=== PATIENT | female | born 1945 | race Two or more races ===

== ENCOUNTER → 2016-08-19 | Day surgery (SDC) | payer BC ==
[2016-08-04 14:24] VITALS: Ht 156.2 cm; Wt 51.4 kg
[~2016-08-19] VITALS: Ht 156.2 cm; Wt 51.4 kg
[~2016-08-19] MED LIST: 500ML BSS 0.3ML EPI 1:1000PF IRRIG ONE; ACETAMINOPHEN 325 MG TAB PO PRN; AMVISC PLUS 0.8ML SYRINGE INT OCU ONE; ASPCH81X PO; ATROPINE SULFATE 0.1 MG/ML 5ML SYR IV PRN; AcetaZOLAMIDE 250 MG TAB PO SCH; BETAXOLOL HCL 0.25% OP SUSP PER DROP CHARGE OPL SCH; BRIMONIDINE TART 0.2% OP SOLN PER DROP CHARGE ONE; BSS FLUSH ONE; ENDOCOAT 0.85ML SYRINGE INT OCU ONE; EpINEphrine INJ 1MG/ML AMP 1 MG/ML AMP ONE; GLIP2.5T11 PO; LACTATED RINGER'S 1000ML 500 ML IV SCH; LIDOCAINE 4% OP SOLN DROP CHARGE ONE; LIDOCAINE 4% OP SOLN DROP CHARGE OPL SCH; LIDOCAINE HCL 1% MPF 2 ML VIAL ONE; METF-384 PO; MIDAZOLAM HCL 1 MG/ML 2ML VIAL ONE; MIX: 4ML BSS 1ML EPI 1:1000 PF INSTIL ONE; MOXIFLOXACIN OPH SOLN PER DROP CHARGE ONE; MULT-506 PO; OCUCOAT 1 ML SOLN IO ONE; OYST500T47 PO; POVIDONE-IODINE OP SOLN 30 ML BTL ONE; PROPARACAINE 0.5% OP SOLN PER DROP CHARGE OPL SCH; SIMV10TA2 PO; SITA100T3 PO; TOBRAMYCIN/DEXAMETHASONE OPH OINT PER APPLN CHARGE ONE
--- NOTE | 2016-08-19 08:10 | History & Physical Bridge - [place] ---
H&P Re-Evaluation Bridge Note: I have examined the patient, reviewed the History & Physical and in the interval since the performance of the History & Physical I have noted the following changes of clinical significance: No changes noted
[2016-08-19] MEDS: PHENYLEPHRINE HCL 2.5% OP SOLN PER DROP CHARGE OPL SCH ×2 (09:12→09:17)
[2016-08-19] MEDS: TROPICAMIDE 1% OP SOLN PER DROP CHARGE OPL SCH ×2 (09:13→09:18)
[2016-08-19] MEDS: CYCLOPENTOLATE HCL 1% OP SOLN PER DROP CHARGE OPL SCH ×2 (09:14→09:19)
[2016-08-19] MEDS: MOXIFLOXACIN OPH SOLN PER DROP CHARGE OPL SCH ×2 (09:15→09:25)
--- NOTE | 2016-08-19 10:00 | Discharge Instructions-SurgCtr ---
Discharge Instructions Date of Service Aug 19, 2016. Visit Reason for Visit: Cataract Left Eye Discharge Discharge Diagnosis / Problem: lens implant left eye Discharge Goals Goal(s): Improve function Medications Stopped Medications Name(s): Metfomin, glipizide held for 48 hrs. Activity Recommendations Activity Limitations: resume your previous activity Lifting Limitations: no more than 10 pounds Exercise/Sports Limitations: gradually increase as tolerated May Resume Sexual Activity: when tolerated Shower/Bathe: tomorrow Driving or Machine Use: resume 1 day after discharge Anesthesia . Post Anesthesia Instructions: If you have had General Anesthesia or IV Sedation: * Do not drive today. * Resume driving when surgeon permits. * Do not make important decisions or sign legal documents today. * Call surgeon for: 1. Temperature elevations greater than 101 degrees F. 2. Uncontrollable pain. 3. Excessive bleeding. 4. Persistent nausea and vomiting. 5. Medication intolerance (nausea, vomiting or rash). * For nausea and vomiting use only clear liquids such as: tea, soda, bouillon until nausea subsides, then gradually increase diet as tolerated. * If you have any concerns or questions, call your surgeon's office. If physician is unavailable and it is an emergency, call 911 or go to the nearest emergency room. . Instructions / Follow-Up Instructions / Follow-Up ACTIVITY RECOMMENDATIONS: * Light activities. * Mild irritation and blurred vision are common for the first few days. * You may walk outside, read, watch television. * Redness around the white part of the eye is common. MEDICATIONS: Resume previous medications unless instructed otherwise by your surgeon. * Take white Diamox (Acetazolamide) tablet at 1 pm today. Start all eye drops at 1 pm today: * Eye drops (today and tomorrow): Prednisone - one drop in operative eye every 3 hours while awake Ofloxacin - one drop in operative eye every 3 hours while awake SPECIAL CARE INSTRUCTIONS: * Tape plastic shield over eye to sleep at night. Call your doctor at with any concerns or problems. FOLLOW UP VISIT: Follow-up with Dr Barrera at [place] office as scheduled. Diet Recommendations Home Diet: no limitations Procedures Procedures Performed: cataract extraction with lens implant Pending Studies Studies pending at discharge: no Medical Emergencies . Who to Call and When: Medical Emergencies: If at any time you feel your situation is an emergency, please call 911 immediately. . Non-Emergent Contact Non-Emergency issues call your: Demolition Expert Call Non-Emergent contact if: your pain is not controlled [phone] . . "Provider Documentation" section prepared by Shant Barrera. .
--- NOTE | 2016-08-19 10:02 | [facility] Operative Report ---
Operative Report Date of Service Aug 19, 2016. Operative Report 1. PREOPERATIVE DIAGNOSIS: Senile nuclear cataract, left eye. 2. POSTOPERATIVE DIAGNOSIS: Senile nuclear cataract, left eye. 3. PROCEDURE: Phacoemulsification of left cataract with posterior chamber lens implant, type Bausch [employer] Lomb, model Hoya [id number], power +22.0 diopters. ANESTHESIA: Local standby. SURGEON: Dr. Barrera. COMPLICATIONS: None. OPERATING TIME: 10 minutes. 4. OPERATION AND FINDINGS: DESCRIPTION OF PROCEDURE: The left pupil was dilated. The anesthetic was administered using a topical technique. The left eye was prepped and draped. A speculum was placed. A clear corneal incision was formed. The chamber was filled with Amvisc Plus and Endocoat. Epinephrine solution was used. A paracentesis was placed. A capsulorrhexis was performed. The nucleus was hydrodissected. The lens was removed with phacoemulsification. Time was 5.98 seconds. The aspiration unit was used to remove the cortex. The capsule was filled with Amvisc Plus. The lens implant was folded and placed into the capsule. The haptics were placed horizontally. The incision was hydrated. The Amvisc was aspirated. The wound was secure. The chamber was deep. The pupil was round. TobraDex ointment and Vigamox solution were placed. The speculum was removed. The patient was returned to the Recovery Room in stable condition. I attest to the content of the Intraoperative Record and any orders documented therein. Any exceptions are noted below. The scribe's documentation has been prepared in my presence, under my direction and personally reviewed by me in its entirety. I confirm that the note above accurately reflects all work, treatment, procedures, and medical decision making performed by me. I personally scribed for Shant Barrera M.D. ([email or web address]) on 08/19/16 at 10:02. Electronically submitted by Ana Hurst ([email or web address]).
[2016-08-19 10:05] VITALS: TEMP 36.5
--- NOTE | 2016-08-19 10:27 | Anesthesia Progress Nt - [facility] ---
Anesthesia Post Op Note Date & Time Aug 19, 2016 at 10:27 Vital Signs Pain Intensity: 0 Vital Signs Past 12 Hours Date Time Temp Pulse Resp B/P Pulse Ox O2 Delivery O2 Flow Rate FiO2 08/19/16 10:05 36.5 65 16 101/60 96 Room Air 08/19/16 08:59 36.3 61 16 140/75 99 Room Air Notes Mental Status: alert / awake / arousable, participated in evaluation Pt Amnestic to Procedure: No (recall as expected) Nausea / Vomiting: adequately controlled Pain: adequately controlled Airway Patency, RR, SpO2: stable & adequate BP & HR: stable & adequate Hydration State: stable & adequate Anesthetic Complications: no major complications apparent Pt doing well.
[2016-08-19 10:28] VITALS: BP 114/64; PULSE 67; O2SAT 98
== END | disposition home or self-care (01) ==
LOC: X.SURG 08:46
PROVIDERS: ATTEND Specialist
DX: H25.12 Age-related nuclear cataract, left eye (principal); E11.36 Type 2 diabetes mellitus with diabetic cataract; Z68.21 Body mass index [BMI] 21.0-21.9, adult; Z90.89 Acquired absence of other organs

== ENCOUNTER → 2016-09-30 | Day surgery (SDC) | payer BC ==
[2016-09-23 15:49] VITALS: Ht 154.9 cm; Wt 51.4 kg
[~2016-09-30] VITALS: Ht 154.9 cm; Wt 51.4 kg
[~2016-09-30] MED LIST changes: -BETAXOLOL HCL 0.25% OP SUSP PER DROP CHARGE OPL SCH; +BETAXOLOL HCL 0.25% OP SUSP PER DROP CHARGE OPR SCH; -BSS FLUSH ONE; -LIDOCAINE 4% OP SOLN DROP CHARGE OPL SCH; +LIDOCAINE 4% OP SOLN DROP CHARGE OPR SCH; -PROPARACAINE 0.5% OP SOLN PER DROP CHARGE OPL SCH; +PROPARACAINE 0.5% OP SOLN PER DROP CHARGE OPR SCH
[2016-09-30] MEDS: PHENYLEPHRINE HCL 2.5% OP SOLN PER DROP CHARGE OPR SCH ×2 (07:25→07:31)
[2016-09-30] MEDS: TROPICAMIDE 1% OP SOLN PER DROP CHARGE OPR SCH ×2 (07:26→07:31)
[2016-09-30] MEDS: CYCLOPENTOLATE HCL 1% OP SOLN PER DROP CHARGE OPR SCH ×2 (07:27→07:31)
[2016-09-30] MEDS: MOXIFLOXACIN OPH SOLN PER DROP CHARGE OPR SCH ×2 (07:28→07:37)
--- NOTE | 2016-09-30 08:32 | Discharge Instructions-SurgCtr ---
Discharge Instructions Date of Service Sep 30, 2016. Visit Reason for Visit: Cataract Right Eye Discharge Discharge Diagnosis / Problem: lens implant right eye Discharge Goals Goal(s): Improve function Activity Recommendations Activity Limitations: resume your previous activity Lifting Limitations: no more than 10 pounds Exercise/Sports Limitations: gradually increase as tolerated May Resume Sexual Activity: when tolerated Shower/Bathe: tomorrow Driving or Machine Use: resume 1 day after discharge Anesthesia . Post Anesthesia Instructions: If you have had General Anesthesia or IV Sedation: * Do not drive today. * Resume driving when surgeon permits. * Do not make important decisions or sign legal documents today. * Call surgeon for: 1. Temperature elevations greater than 101 degrees F. 2. Uncontrollable pain. 3. Excessive bleeding. 4. Persistent nausea and vomiting. 5. Medication intolerance (nausea, vomiting or rash). * For nausea and vomiting use only clear liquids such as: tea, soda, bouillon until nausea subsides, then gradually increase diet as tolerated. * If you have any concerns or questions, call your surgeon's office. If physician is unavailable and it is an emergency, call 911 or go to the nearest emergency room. . Instructions / Follow-Up Instructions / Follow-Up ACTIVITY RECOMMENDATIONS: * Light activities. * Mild irritation and blurred vision are common for the first few days. * You may walk outside, read, watch television. * Redness around the white part of the eye is common. MEDICATIONS: Resume previous medications unless instructed otherwise by your surgeon. * Take white Diamox (Acetazolamide) tablet at 1 pm today. Start all eye drops at 1 pm today: * Eye drops (today and tomorrow): Prednisone - one drop in operative eye every 3 hours while awake Ofloxacin - one drop in operative eye every 3 hours while awake SPECIAL CARE INSTRUCTIONS: * Tape plastic shield over eye to sleep at night. Call your doctor at with any concerns or problems. FOLLOW UP VISIT: Follow-up with Dr Barrera at [place] office as scheduled. Diet Recommendations Home Diet: no limitations Procedures Procedures Performed: cataract extraction with lens implant Pending Studies Studies pending at discharge: no Medical Emergencies . Who to Call and When: Medical Emergencies: If at any time you feel your situation is an emergency, please call 911 immediately. . Non-Emergent Contact Non-Emergency issues call your: Solder Leveler [employer] Call Non-Emergent contact if: your pain is not controlled [phone] . . "Provider Documentation" section prepared by Shant Barrera. .
--- NOTE | 2016-09-30 08:34 | [facility] Operative Report ---
Operative Report Date of Service Sep 30, 2016. Operative Report 1. PREOPERATIVE DIAGNOSIS: Senile nuclear cataract, Right eye. 2. POSTOPERATIVE DIAGNOSIS: Senile nuclear cataract, right eye. 3. PROCEDURE: Phacoemulsification of right cataract with posterior chamber lens implant, type Bausch & Lomb, model Hoya [id number], power +21.5 diopters. ANESTHESIA: Local standby. SURGEON: Dr. Barrera. COMPLICATIONS: None. OPERATING TIME: 10 minutes. 4. OPERATION AND FINDINGS: DESCRIPTION OF PROCEDURE: The right pupil was dilated. The anesthetic was administered using a topical technique. The right eye was prepped and draped. A speculum was placed. A clear corneal incision was formed. The chamber was filled with Amvisc Plus and Endocoat. Epinephrine solution was used. A paracentesis was placed. A capsulorrhexis was performed. The nucleus was hydrodissected. A lens was removed with phacoemulsification. Time was 8.12 seconds. The aspiration unit was used to remove the cortex. The capsule was filled with Amvisc Plus. The lens implant was folded and placed into the capsule. The incision was hydrated. The Amvisc was aspirated. The wound was secure. The chamber was deep. The pupil was round. Brimonidine, TobraDex ointment and Vigamox solution were placed. The speculum was removed. The patient was returned to the Recovery Room in stable condition. I attest to the content of the Intraoperative Record and any orders documented therein. Any exceptions are noted below. I personally scribed for Shant Barrera M.D. ([email or web address]) on 09/30/16 at 08:34. Electronically submitted by Ana Hurst ([email or web address]).
[2016-09-30 08:35] VITALS: TEMP 36.4
[2016-09-30 08:59] VITALS: BP 128/80; PULSE 67; O2SAT 100
--- NOTE | 2016-09-30 09:28 | Anesthesia Progress Nt - [facility] ---
Anesthesia Post Op Note Date & Time Sep 30, 2016 at 09:27 Vital Signs Pain Intensity: 0 Vital Signs Past 12 Hours Date Time Temp Pulse Resp B/P (MAP) Pulse Ox O2 Delivery O2 Flow Rate FiO2 09/30/16 08:59 67 16 128/80 (96) 100 Room Air 09/30/16 08:35 36.4 56 14 110/74 (86) 98 Room Air 09/30/16 07:11 36.8 66 16 131/79 (96) 99 Room Air Notes Mental Status: alert / awake / arousable, participated in evaluation Pt Amnestic to Procedure: Yes Nausea / Vomiting: adequately controlled Pain: adequately controlled Airway Patency, RR, SpO2: stable & adequate BP & HR: stable & adequate Hydration State: stable & adequate Anesthetic Complications: no major complications apparent
== END | disposition home or self-care (01) ==
LOC: X.SURG 06:43
PROVIDERS: ATTEND Specialist
DX: H25.11 Age-related nuclear cataract, right eye (principal); E11.36 Type 2 diabetes mellitus with diabetic cataract; Z88.5 Allergy status to narcotic agent; Z68.21 Body mass index [BMI] 21.0-21.9, adult; Z98.42 Cataract extraction status, left eye; Z90.89 Acquired absence of other organs; Z91.040 Latex allergy status

== ENCOUNTER → 2017-05-05 | Outpatient (CLI) | payer BC ==
[~2017-05-05] MED LIST changes: -500ML BSS 0.3ML EPI 1:1000PF IRRIG ONE; -ACETAMINOPHEN 325 MG TAB PO PRN; -AMVISC PLUS 0.8ML SYRINGE INT OCU ONE; -ATROPINE SULFATE 0.1 MG/ML 5ML SYR IV PRN; -AcetaZOLAMIDE 250 MG TAB PO SCH; -BETAXOLOL HCL 0.25% OP SUSP PER DROP CHARGE OPR SCH; -BRIMONIDINE TART 0.2% OP SOLN PER DROP CHARGE ONE; -ENDOCOAT 0.85ML SYRINGE INT OCU ONE; -EpINEphrine INJ 1MG/ML AMP 1 MG/ML AMP ONE; -LACTATED RINGER'S 1000ML 500 ML IV SCH; -LIDOCAINE 4% OP SOLN DROP CHARGE ONE; -LIDOCAINE 4% OP SOLN DROP CHARGE OPR SCH; -LIDOCAINE HCL 1% MPF 2 ML VIAL ONE; -MIDAZOLAM HCL 1 MG/ML 2ML VIAL ONE; -MIX: 4ML BSS 1ML EPI 1:1000 PF INSTIL ONE; -MOXIFLOXACIN OPH SOLN PER DROP CHARGE ONE; -OCUCOAT 1 ML SOLN IO ONE; -POVIDONE-IODINE OP SOLN 30 ML BTL ONE; -PROPARACAINE 0.5% OP SOLN PER DROP CHARGE OPR SCH; -TOBRAMYCIN/DEXAMETHASONE OPH OINT PER APPLN CHARGE ONE
== END | disposition home or self-care (01) ==
LOC: C.PAPS 15:50
PROVIDERS: ATTEND Obstetrics & Gynecology
DX: Z12.4 Encounter for screening for malignant neoplasm of cervix (principal)

== ENCOUNTER → 2017-07-07 | Outpatient (CLI) | payer BC | END | disposition home or self-care (01) | LOC: C.PATHSPEC 17:44 | PROVIDERS: ATTEND Obstetrics & Gynecology | DX: L82.0 Inflamed seborrheic keratosis (principal); N90.89 Other specified noninflammatory disorders of vulva and perineum ==

== ENCOUNTER 2024-10-09 13:28 | Observation (INO) ==
--- NOTE | 2024-10-09 14:01 | Emergency Department Note ---
ED DC CONDITION Conditon at Discharge Condition at Discharge: Good Impression & Plan Acute hyponatremia Admission ED Provider Note HPI: History obtained from patient. The patient is a 79-year-old female with history of type 2 diabetes, hyperlipidemia, presents the emergency department with a chief complaint of mid abdominal pain and diarrhea that has been ongoing for about the past 4 days. Patient denies any vomiting, patient denies any chest pain or shortness of breath. Patient states that she has had a slight cough and she does have a slight headache. On arrival here to the ED the patient is hemodynamically stable, she is afebrile, she otherwise appears to be in no acute distress. ROS: - Per HPI Differential Diagnosis: Sepsis, UTI, pneumonia, viral gastroenteritis, acute appendicitis, acute cholecystitis, acute colitis, diverticulitis flare, acute pancreatitis, amongst other potential pathologies. *Outpatient medications and allergy history reviewed. PE: General: Alert HEENT: Normocephalic, trachea midline Eyes: Extraocular eye movement is intact, no scleral erythema Pulmonary: Clear to auscultation bilaterally, no wheezing Cardio: Regular rate and rhythm GI: Abdomen is soft to palpation, mild tenderness over the mid abdomen without any guarding or rigidity : No suprapubic tenderness MSK: No evidence of trauma or malformation of the extremities, no edema Skin: No evidence of rash Neuro: Alert, no focal deficits Psychiatric: Cooperative INDEPENDENT INTERPRETATIONS: monitor and storage bin tender: (As interpreted by myself): - An order was placed for continuous cardiac monitoring - Patient was noted to be in sinus rhythm with a rate of 80 EKG: (As interpreted by myself): Rate: 78 Rhythm: Normal sinus rhythm Intervals: Within normal limits ST changes: No ST elevation Time: 1418 Chest x-ray: (As interpreted by myself): Left lower lobe pneumonia Interventions provided in ED: - IV fluid bolus, IV cefepime, IV azithromycin Medical Decision Making: IV was established and lab work obtained, patient was placed on monitor and storage bin tender. Lab work shows a mild leukocytosis at 13.64, hemoglobin is stable at 11.2, platelet count is normal, CMP shows a new hyponatremia at 124, creatinine is normal, BUN is normal, there is no transaminitis, lipase is normal, bilirubin is normal, troponin is negative x 1. EKG per my interpretation shows normal sinus rhythm with a rate of 78, no acute ischemic changes are noted. Patient denies any chest pain. Low suspicion for ACS. Urinalysis was obtained and shows trace ketones, 1+ blood, there is no pyuria and it is both leukocyte esterase and urine nitrate negative. Low suspicion for UTI. CT imaging of the abdomen pelvis was obtained with IV contrast and no acute findings are noted per the interpreting radiologist. Chest x-ray is suggestive of a possible early left lower lung pneumonia. On my reassessment the patient is resting comfortably in bed, she remains hemodynamically stable. Stool PCR testing is negative, C. difficile testing is negative. Given finding of possible early pneumonia in addition to new hyponatremia, I feel the patient should be admitted for further workup. Patient was in agreement, case was discussed with the on-call admitting service for [facility], the patient was placed for admission in stable condition to the service of Dr. Elder. Consultants/Discussions held with other healthcare providers: - Hospitalist, Dr. Elder Disposition discussion held by myself with: - Patient, patient's at the bedside, patient's son over the phone Diagnosis: 1. Left lower lobe pneumonia, acute 2. Diarrhea, acute, nonspecific 3. Hyponatremia, acute 4. Leukocytosis, acute Disposition: Admission Son Yepez DO Emergency Medicine Past Med/Surg History Problem List (Updated 10/09/24 @ 16:31 by ANNE-MARIE Schilling) Iron deficiency anemia HLD (hyperlipidemia) DM2 (diabetes mellitus, type 2) Acute hyponatremia (Acute) Lichen sclerosus et atrophicus Surgical History (Updated 06/24/21 @ 09:26 by Radha Russell) S/P total abdominal hysterectomy and bilateral salpingo-oophorectomy History of tonsillectomy and adenoidectomy History of ear surgery Family History (Updated 06/24/21 @ 09:26 by Radha Russell) Denies family history of Ovarian cancer Breast cancer Colorectal cancer Social History (Updated 06/24/21 @ 09:25 by Radha Russell) Smoking Status: Never smoker Do You Dip or Chew Tobacco: No; Preferred Language: Luxembourgish Feels Safe at Home: Yes Allergies Allergies Allergy/AdvReac Type Severity Reaction Status Date / Time beet Allergy Severe Gastrointestinal Unverified 10/09/24 16:15 Upset latex Allergy Unknown RASH Verified 10/09/24 16:15 codeine AdvReac Unknown coughing Verified 10/09/24 16:15 Home Meds Home Medications Medication Instructions Recorded Confirmed multivitamin (Daily Multi-Vitamin 1 tab PO DAILY 06/24/21 10/09/24 tablet) simvastatin 10 mg tablet 10 mg PO DAILY 06/24/21 10/09/24 sitagliptin phosphate 100 mg 100 mg PO DAILY 06/24/21 10/09/24 tablet (Januvia) calcium carbonate (Calcium 600) 600 mg PO DAILY 10/09/24 10/09/24 cholecalciferol (vitamin D3) 25 25 mcg PO DAILY 10/09/24 10/09/24 mcg (1,000 unit) tablet (Vitamin D3) cyanocobalamin (vitamin B-12) 1,000 mcg PO DAILY 10/09/24 10/09/24 1,000 mcg tablet ferrous sulfate 325 mg (65 mg 325 mg PO DAILY 10/09/24 10/09/24 iron) tablet,delayed release glipizide 2.5 mg tablet, extended 2.5 mg PO DAILY 10/09/24 10/09/24 release 24 hr metformin 500 mg tablet,extended 1,000 mg PO BID 10/09/24 10/09/24 release 24 hr Results & Data (ED) Vital Signs Vital Signs - 24 hr 10/09/24 13:42 10/09/24 14:11 10/09/24 15:04 Temperature 36.6 C Temperature Source Temporal Artery Scan Pulse Rate 84 80 79 Pulse Rate from SpO2 Sensor Respiratory Rate 22 20 Respiratory Effort / Characteristics Non-Labored Respiratory Depth Normal Blood Pressure 118/68 129/80 Blood Pressure Mean 84 90 Pulse Oximetry 96 99 Oxygen Delivery Method Room Air Room Air Sepsis Recent Fever Within 48 Hours No Sepsis New/Unexplained Change in Mental Status No Sepsis Action Taken by Nursing No Action Required 10/09/24 16:00 10/09/24 16:00 Temperature Temperature Source Pulse Rate 75 Pulse Rate from SpO2 Sensor 75 Respiratory Rate 21 Respiratory Effort / Characteristics Respiratory Depth Blood Pressure 122/69 Blood Pressure Mean 86 Pulse Oximetry 99 97 Oxygen Delivery Method Room Air Room Air Sepsis Recent Fever Within 48 Hours Sepsis New/Unexplained Change in Mental Status Sepsis Action Taken by Nursing Laboratory Data 10/09/24 14:05 10/09/24 14:05 Lab Results 10/09/24 10/09/24 Range/Units 14:05 15:03 WBC 13.64 H (4.8-10.8) K/ul RBC 4.01 L (4.20-5.40) M/uL Hgb 11.2 L (12.0-16.0) g/dl Hct 33.3 L (37.0-47.0) % MCV 83.0 (80.0-100.0) fL MCH 27.9 (25.0-34.0) pg MCHC 33.6 (32.0-36.0) g/dL RDW Std Deviation 40.1 (36.4-46.3) fL RDW Coeff of Elpidio 13.2 (11.5-14.5) % Plt Count 328 (130-400) K/uL MPV 8.4 L (9.4-12.4) fL Immature Gran % (Auto) 0.4 % Neut % (Auto) 74.6 % Lymph % (Auto) 13.3 % Cannon % (Auto) 10.5 % Eos % (Auto) 0.9 % Baso % (Auto) 0.3 % Neut # (Auto) 10.17 H (1.40-6.50) K/uL Lymph # (Auto) 1.82 (1.20-3.40) K/uL Cannon # (Auto) 1.43 H (0.11-0.59) K/uL Eos # (Auto) 0.12 (0.00-0.50) K/uL Baso # (Auto) 0.04 (0.00-0.20) K/uL Immature Gran # (Auto) 0.06 (0.01-0.20) K/uL PT 11.5 (9.0-12.0) Seconds INR 1.1 (0.9-1.1) Sodium 124 L (136-145) mmol/L Potassium 3.9 (3.5-5.1) mmol/L Chloride 92 L (98-107) mmol/L Carbon Dioxide 24 (21-32) mmol/L Anion Gap 8 (3-11) BUN 12 (6-23) mg/dl Creatinine 0.81 (0.6-1.2) mg/dl Est Cr Clr Drug Dosing 43.6 ml/min eGFR 73.80 BUN/Creatinine Ratio 14.8 (10-20) Glucose 110 H (70-99(Fasting)) mg/dl Osmolality 259 L (280-300) mOsm/kg Calcium 9.5 (8.6-10.3) mg/dl Total Bilirubin 0.6 (0.2-1.0) mg/dl AST 32 (13-39) U/L ALT 22 (7-52) U/L Alkaline Phosphatase 68 (34-104) U/L Troponin I High Sens 6.2 (0-14) pg/ml Total Protein 7.7 (6.0-8.3) gm/dl Albumin 4.2 (3.4-5.0) gm/dl Globulin 3.5 (2.5-4.0) gm/dl Albumin/Globulin Ratio 1.2 (0.9-2) Lipase 55 (11-82) U/L Urine Color Yellow Urine Appearance Clear (Clear) Urine pH 5.5 (4.5-7.5) Ur Specific [place] 1.015 (1.000-1.030) Urine Protein 1+ H (Negative) Urine Glucose (UA) Negative (Negative) Urine Ketones Trace H (Negative) Urine Blood 1+ H (Negative) Urine Nitrite Negative (Negative) Urine Bilirubin Negative (Negative) Urine Urobilinogen Negative (Negative) Ur Leukocyte Esterase Negative (Negative) Urine WBC (Auto) 0-5 (0-5) /hpf Urine RBC (Auto) 0-2 (0-2) /hpf U Hyaline Cast (Auto) 11-20 H (0-2) /lpf U Epithel Cells (Auto) 3-5 H (0-2) /hpf Urine Bacteria (Auto) None Seen (None Seen) Hyaline Casts Present A (None Presnt) /lpf Urine Comment Stl C. cayetanensis PCR Not Detected (NotDetected) Stool Rotavirus A PCR Not Detected (NotDetected) Stl Adenov F 40/41 PCR Not Detected (NotDetected) Stool Astrovirus (PCR) Not Detected (NotDetected) Stool Campylobacter PCR Not Detected (NotDetected) Stl C. diff Tox B Gene Negative Cdiff Gene (Neg) Stl C. diff [id number] NEGATIVE Stool Cryptosporidium PCR Not Detected (NotDetected) Stl E.coli Shiga Tox PCR Not Detected (NotDetected) Stl Enterotoxigenic E PCR Not Detected (NotDetected) Stool EPEC (PCR) Not Detected (NotDetected) Stool EAEC (PCR) Not Detected (NotDetected) Stl E. histolytica PCR Not Detected (NotDetected) Stool Giardia Lamblia PCR Not Detected (NotDetected) Stool Salmonella PCR Not Detected (NotDetected) Stool Sapovirus (PCR) Not Detected (NotDetected) Stl P. shigelloides PCR Not Detected (NotDetected) Stl Shigella/EIEC PCR Not Detected (NotDetected) St Y.enterocolitica PCR Not Detected (NotDetected) Stool Vibrio (PCR) Not Detected (NotDetected) Stl Vibrio cholerae PCR Not Detected (NotDetected) Stl Norovirus GI/GII PCR Not Detected (NotDetected) Adenovirus (PCR) Not Detected (NotDetected) B. pertussis DNA (PCR) Not Detected (NotDetected) B.parapertussis DNA PCR Not Detected (NotDetected) C. pneumoniae DNA (PCR) Not Detected (NotDetected) Coronavirus OC43 (PCR) Not Detected (NotDetected) Coronavirus HKU1 (PCR) Not Detected (NotDetected) Coronavirus 229E (PCR) Not Detected (NotDetected) SARS-CoV-2 (PCR) Not Detected (NotDetected) Coronavirus NL63 (PCR) Not Detected (NotDetected) Human Metapneumovir PCR Not Detected (NotDetected) Influenza Type A (PCR) Not Detected (NotDetected) Influenza Type B (PCR) Not Detected (NotDetected) M. pneumoniae (PCR) Not Detected (NotDetected) Parainfluenza 1 (PCR) Not Detected (NotDetected) Parainfluenza 2 (PCR) Not Detected (NotDetected) Parainfluenza 3 (PCR) Not Detected (NotDetected) Parainfluenza 4 (PCR) Not Detected (NotDetected) RSV (PCR) Not Detected (NotDetected) Entero/Rhino (PCR) Not Detected (NotDetected) Administered Medications Discontinued Medications Sodium Chloride (Nss) 1,000 mls @ 999 mls/hr IV .Q1H1M STA Stop: 10/09/24 14:58 Last Infusion: 10/09/24 15:31 Dose: Infused Documented By: Admin: 10/09/24 14:12 Dose: 999 mls/hr Documented By: MELISSA Ioversol (Optiray 320 100ml) 95 ml IV ONCE ONE Stop: 10/09/24 14:56 Last Admin: 10/09/24 14:56 Dose: 95 ml Documented By: ABS Imaging Data Radiologist's Impression: Abdomen/Pelvis CT 10/09/24 13:[address] WITH IV CONTRAST CT DOSE: 416.74 mGy.cm HISTORY: mid abd pain, diarrhea TECHNIQUE: Multiaxial CT images of the abdomen and pelvis were performed following the IV administration of 95 cc of Optiray, A dose lowering technique was utilized adhering to the principles of ALARA. COMPARISON STUDY: None FINDINGS: ABDOMEN: There are a few tiny liver cysts. Otherwise the liver, gallbladder, spleen, pancreas, and adrenal glands are unremarkable. There is no hydronephrosis bilaterally. No renal calculi seen. There are mild atherosclerotic calcifications. No abdominal aortic aneurysm. Pelvis: Uterus is either absent or very diminutive. No adnexal mass seen. Urinary bladder is normal in distended. There is sigmoid diverticulosis. No acute diverticulitis. No bowel inflammation or obstruction. No free fluid or free air. No enlarged adenopathy. Osseous structures: There is lumbar degenerative disc disease. There are mild degenerative changes at the hips. IMPRESSION: No acute findings. ACT 112: Negative or not required by law. The above report was generated using voice recognition software. It may contain grammatical, syntax or spelling errors. Electronically signed by: Dharmesh Gaytan M.D. 10/09/2024 3:10 PM Chest X-Ray 10/09/24 14:59 XR chest 1V portable CLINICAL HISTORY: cough COMPARISON STUDY: None FINDINGS: Heart size and pulmonary vasculature are normal. There is a small area of faint reticular and patchy opacity medial left lung base. No lobar consolidation or pleural effusion. No pneumothorax. IMPRESSION: Possible early pneumonia medial left lung base. ACT 112: Negative or not required by law. Electronically signed by: Dharmesh Gaytan M.D. 10/09/2024 3:29 PM Discharge Plan Visit Data Chief Complaint: Testing Request Stated Complaint: TESTING REQUEST, DOC SENT ED Provider: Son Yepez Discharge Problem: Acute hyponatremia Patient Disposition: Admitted As Inpatient Condition: Fair Forms Stand Alone Forms: [facility] Prescriptions Prescriptions: No Action Januvia 100 mg tablet 100 mg PO DAILY simvastatin 10 mg tablet 10 mg PO DAILY multivitamin [Daily Multi-Vitamin] Tablet 1 tab PO DAILY cyanocobalamin (vitamin B-12) 1,000 mcg tablet 1,000 mcg PO DAILY glipizide 2.5 mg tablet extended release 24hr 2.5 mg PO DAILY ferrous sulfate 325 mg (65 mg iron) Tablet,Delayed Release (Dr/Ec) 325 mg PO DAILY metformin 500 mg tablet extended release 24 hr 1,000 mg PO BID calcium carbonate [Calcium 600] 600 mg calcium (1,500 mg) Tablet 600 mg PO DAILY cholecalciferol (vitamin D3) [Vitamin D3] 25 mcg (1,000 unit) Tablet 25 mcg PO DAILY Referrals Referrals: Nathaniel Ramachandran MD [Primary Care Provider] -
[2024-10-09] MEDS: SODIUM CHLORIDE 0.9% 1,000 ML IV STA (14:12)
[2024-10-09 14:23] LABS: Basophils # (auto) 0.04 K/uL (0.00-0.20); Basophils % (auto) 0.3 %; Eosinophils # (auto) 0.12 K/uL (0.00-0.50); Eosinophils % (auto) 0.9 %; Hematocrit (blood only) 33.3 % (37.0-47.0); Hemoglobin 11.2 g/dl (12.0-16.0); Immature Granulocytes # (auto) 0.06 K/uL (0.01-0.20); Immature Granulocytes % (auto) 0.4 %; Lymphocytes # (auto) 1.82 K/uL (1.20-3.40); Lymphocytes % (auto) 13.3 %; Mean Corpuscular Hemoglobin 27.9 pg (25.0-34.0); Mean Corpuscular Hgb Conc 33.6 g/dL (32.0-36.0); Mean Platelet Volume 8.4 fL (9.4-12.4); Monocytes # (auto) 1.43 K/uL (0.11-0.59); Monocytes % (auto) 10.5 %; Neutrophils # (auto) 10.17 K/uL (1.40-6.50); Neutrophils % (auto) 74.6 %; Platelet Count 328 K/uL (130-400); RDW Coefficient of Variation 13.2 % (11.5-14.5); RDW Standard Deviation 40.1 fL (36.4-46.3); Red Blood Count 4.01 M/uL (4.20-5.40); White Blood Count 13.64 K/ul (4.8-10.8)
[2024-10-09 14:45] LABS: Albumin Globulin Ratio 1.2 (0.9-2); BUN Creatinine Ratio 14.8 (10-20); Bilirubin,Total 0.6 mg/dl (0.2-1.0); Calcium 9.5 mg/dl (8.6-10.3); Creatinine Clr Calc Pharmacy 43.6 ml/min; Globulin 3.5 gm/dl (2.5-4.0); Potassium 3.9 mmol/L (3.5-5.1); Total Protein 7.7 gm/dl (6.0-8.3)
[2024-10-09 14:48] LABS: INR 1.1 (0.9-1.1); Prothrombin Time 11.5 Seconds (9.0-12.0)
[2024-10-09 14:51] LABS: Troponin I High Sensitivity 6.2 pg/ml (0-14)
[2024-10-09 14:56] LABS: Appearance Urine Clear (Clear); Bacteria Urine Automated None Seen (None Seen); Bilirubin Urine Negative (Negative); Blood Urine 1+ (Negative); Color Urine Yellow; Glucose Urine UA Negative (Negative); Hyaline Casts Urine Present /lpf (None Presnt); Ketones Urine Trace (Negative); Leukocyte Esterase Urine Negative (Negative); Nitrite Urine Negative (Negative); Protein Urine 1+ (Negative); RBC Urine Automated 0-2 /hpf (0-2); Specific Gravity Urine 1.015 (1.000-1.030); Urobilinogen Urine Negative (Negative); WBC Urine Automated 0-5 /hpf (0-5); pH Urine 5.5 (4.5-7.5)
[2024-10-09] MEDS: OPTIRAY 320 100ml IV ONE (14:56)
[2024-10-09 15:09] LABS: C. diff 027-NAP1-BI NEGATIVE; Cdiff Toxin B Gene (2yr or >) Negative Cdiff Gene (Neg)
--- NOTE | 2024-10-09 15:12 | CT Scan Report ---
ABDOMEN AND PELVIS CT WITH IV CONTRAST CT DOSE: 416.74 mGy.cm HISTORY: mid abd pain, diarrhea TECHNIQUE: Multiaxial CT images of the abdomen and pelvis were performed following the IV administrat ion of 95 cc of Optiray, A dose lowering technique was utilized adhering to the principles of ALARA. COMPARISON STUDY: None FINDINGS: ABDOMEN: There are a few tiny liver cysts. Otherwise the liver, gallbladder, spleen, pancreas, and ad renal glands are unremarkable. There is no hydronephrosis bilaterally. No renal calculi seen. There a re mild atherosclerotic calcifications. No abdominal aortic aneurysm. Pelvis: Uterus is either absent or very diminutive. No adnexal mass seen. Urinary bladder is normal i n distended. There is sigmoid diverticulosis. No acute diverticulitis. No bowel inflammation or obstr uction. No free fluid or free air. No enlarged adenopathy. Osseous structures: There is lumbar degenerative disc disease. There are mild degenerative changes at the hips. IMPRESSION: No acute findings. ACT 112: Negative or not required by law. The above report was generated using voice recognition software. It may contain grammatical, syntax o r spelling errors. Electronically signed by: Dharmesh Gaytan M.D. 10/09/2024 3:10 PM
--- NOTE | 2024-10-09 15:31 | XRay Report ---
XR chest 1V portable CLINICAL HISTORY: cough COMPARISON STUDY: None FINDINGS: Heart size and pulmonary vasculature are normal. There is a small area of faint reticular a nd patchy opacity medial left lung base. No lobar consolidation or pleural effusion. No pneumothorax. IMPRESSION: Possible early pneumonia medial left lung base. ACT 112: Negative or not required by law. Electronically signed by: Dharmesh Gaytan M.D. 10/09/2024 3:29 PM
[2024-10-09 15:42] LABS: Adenovirus F 40/41 PCR Not Detected (NotDetected); Astrovirus PCR Not Detected (NotDetected); Campylobacter PCR Not Detected (NotDetected); Cryptosporidium PCR Not Detected (NotDetected); Cyclospora cayetanensis PCR Not Detected (NotDetected); Entamoeba histolytica PCR Not Detected (NotDetected); Enteroaggregative E.coli(EAEC) Not Detected (NotDetected); Enteropathogenic E.coli (EPEC) Not Detected (NotDetected); Enterotoxigenic E.coli (ETEC) Not Detected (NotDetected); Giardia lamblia PCR Not Detected (NotDetected); Norovirus GI/GII PCR Not Detected (NotDetected); Plesiomonas shigelloides PCR Not Detected (NotDetected); Rotavirus A PCR Not Detected (NotDetected); Salmonella PCR Not Detected (NotDetected); Sapovirus PCR Not Detected (NotDetected); Shiga-like Toxin E.coli (STEC) Not Detected (NotDetected); Shigella/Enteroinvasive E.coli Not Detected (NotDetected); Vibrio cholerae PCR Not Detected (NotDetected); Vibrio species PCR Not Detected (NotDetected); Yersinia enterocolitica PCR Not Detected (NotDetected)
[2024-10-09 15:59] LABS: Adenovirus PCR Not Detected (NotDetected); Bordetella parapertussis PCR Not Detected (NotDetected); Bordetella pertussis PCR Not Detected (NotDetected); Chlamydia pneumoniae PCR Not Detected (NotDetected); Coronavirus 229E PCR Not Detected (NotDetected); Coronavirus CoV-2 (COVID19)PCR Not Detected (NotDetected); Coronavirus HKU1 PCR Not Detected (NotDetected); Coronavirus NL63 PCR Not Detected (NotDetected); Coronavirus OC43PCR Not Detected (NotDetected); Human Metapneumovirus PCR Not Detected (NotDetected); Influenza A PCR Not Detected (NotDetected); Influenza B PCR Not Detected (NotDetected); Mycoplasma pneumoniae PCR Not Detected (NotDetected); Parainfluenza Virus 1 PCR Not Detected (NotDetected); Parainfluenza Virus 2 PCR Not Detected (NotDetected); Parainfluenza Virus 3 PCR Not Detected (NotDetected); Parainfluenza Virus 4 PCR Not Detected (NotDetected); Respiratory Syncytial VirusPCR Not Detected (NotDetected); Rhinovirus/Enterovirus PCR Not Detected (NotDetected)
--- NOTE | 2024-10-09 16:32 | History & Physical Report ---
Date of Service October 09, 2024 Assessment & Plan (1) Acute hyponatremia: (2) DM2 (diabetes mellitus, type 2): (3) HLD (hyperlipidemia): (4) Iron deficiency anemia: Plan The patient is a 79 Admission and Anticipated Discharge Date Admission Date: The patient is a 79 year old female who presents to the ED on 10/08/24 w/ complaints of diarrhea x 4 days and fever x 1 day. Found to have hyponatremia Acute gastroenteritis: -Stool PCR negative, with fever - will cover with levaquin -CT A/P unremarkable. Acute Hyponatremia: -Likely secondary to dehydration w/ recent diarrhea. -Check urine lytes & osmol. BMP q6h - w/ goal correction of 6-8 points daily -Gentle IVF - close monitoring. Suspected CAP: -Viral Panel negative, levaquin will cover PNA - no hypoxia at this time, legionella pending Hx DM2: -Hold glipizide and metformin; monitor sugars; insulin as needed A total of 60 minutes was spent on chart review, reviewing diagnostic data, facilitating plan of care, discussion with consultants. Full code DVT proph: lovenox History of Present Illness Chief Complaint: Diarrhea Primary Care Provider: Nathaniel Ramachandran MD The patient is a 79-year-old female with a past medical history of DM2, HLD, vitamin B12 deficiency, iron deficiency anemia, who presents to the ED on 10/09/2024 with complaints of diarrhea over the past 4 days. Patient had fever in PCPs office earlier today, Tmax 101.2. She reports the diarrhea started wednesday and has not improved. Denied eating anything differently or eating out recently. Also reported abdominal cramping after every meal followed by a bowel movement. Reports have bms 5 x a day. Denies any nausea or vomiting. Reports having 2 bowel movements today. Reports feeling like the diarrhea is slowing down. Reported some intermittent coughing along with a dust allergy. Denies chest pain or back pain. Denies dizziness, headache, shortness of breath. Reports feeling some weakness. Reports traveling to [place] last month. Denies sick contacts. On arrival to the ED, labs remarkable for NA 124, chloride 92, glucose 110, WBC 13, hemoglobin 11.2 Chest x-ray shows possible early pneumonia, medial left lung base Abdomen/pelvis CT negative for any acute findings Respiratory viral panel negative, stool PCR negative Patient received IV ab and IVF in the ER. The patient will be admitted for further management of hyponatremia Allergies Allergy/AdvReac Type Severity Reaction Status Date / Time beet Allergy Severe Gastrointestinal Unverified 10/09/24 16:15 Upset latex Allergy Unknown RASH Verified 10/09/24 16:15 codeine AdvReac Unknown coughing Verified 10/09/24 16:15 Home Medications Medication Instructions Recorded Confirmed Type multivitamin (Daily Multi-Vitamin 1 tab PO DAILY 06/24/21 10/09/24 History tablet) simvastatin 10 mg tablet 10 mg PO DAILY 06/24/21 10/09/24 History sitagliptin phosphate 100 mg 100 mg PO DAILY 06/24/21 10/09/24 History tablet (Januvia) calcium carbonate (Calcium 600) 600 mg PO DAILY 10/09/24 10/09/24 History cholecalciferol (vitamin D3) 25 25 mcg PO DAILY 10/09/24 10/09/24 History mcg (1,000 unit) tablet (Vitamin D3) cyanocobalamin (vitamin B-12) 1,000 mcg PO DAILY 10/09/24 10/09/24 History 1,000 mcg tablet ferrous sulfate 325 mg (65 mg 325 mg PO DAILY 10/09/24 10/09/24 History iron) tablet,delayed release glipizide 2.5 mg tablet, extended 2.5 mg PO DAILY 10/09/24 10/09/24 History release 24 hr metformin 500 mg tablet,extended 1,000 mg PO BID 10/09/24 10/09/24 History release 24 hr Past Med/Surg History Problem List (Updated 10/09/24 @ 16:31 by ANNE-MARIE Schilling) Iron deficiency anemia HLD (hyperlipidemia) DM2 (diabetes mellitus, type 2) Acute hyponatremia (Acute) Lichen sclerosus et atrophicus Surgical History (Updated 06/24/21 @ 09:26 by Radha Russell) S/P total abdominal hysterectomy and bilateral salpingo-oophorectomy History of tonsillectomy and adenoidectomy History of ear surgery Family History (Updated 06/24/21 @ 09:26 by Radha Russell) Denies family history of Ovarian cancer Breast cancer Colorectal cancer Social History (Updated 06/24/21 @ 09:25 by Radha Russell) Smoking Status: Never smoker Do You Dip or Chew Tobacco: No; Preferred Language: Croatian Feels Safe at Home: Yes Review of Systems Review of Systems: All systems reviewed & are unremarkable except as noted in HPI & below Physical Exam Constitutional: WD/WN, vitals as above Eyes: PERRL, conjunctivae normal, anicteric sclerae ENMT: external ear and nose normal, oropharynx normal Neck: trachea midline, no thyromegaly Respiratory: normal respiratory effort, lungs clear to auscultation Cardiovascular: RRR, no murmur, no edema Gastrointestinal (Abdomen): normal bowel sounds, soft, nontender, no hepatosplenomegaly (reports abdominal cramping, intermittent) Musculoskeletal: no cyanosis or clubbing, extremities motor strength 5/5 Skin: no rashes, warm and dry Neurologic: PERRL, EOMI, accommodation nl, no face palsy, no dysarthria Psychiatric: A+Ox3, euthymic affect Lymphatic: no cervical or axillary lymphadenopathy Results & Data Results & Data Vital Signs (Past 12 Hours) Vital Signs Temp Pulse Resp BP Pulse Ox O2 Del Method 10/09/24 16:00 99 Room Air 10/09/24 15:04 79 20 129/80 99 Room Air 10/09/24 14:11 80 10/09/24 13:42 36.6 C 84 22 118/68 96 Room Air Diagnostic Findings Laboratory Results WBC 13.64 K/ul (4.8-10.8) H 10/09/24 14:05 RBC 4.01 M/uL (4.20-5.40) L 10/09/24 14:05 Hgb 11.2 g/dl (12.0-16.0) L 10/09/24 14:05 Hct 33.3 % (37.0-47.0) L 10/09/24 14:05 MCV 83.0 fL (80.0-100.0) 10/09/24 14:05 MCH 27.9 pg (25.0-34.0) 10/09/24 14:05 MCHC 33.6 g/dL (32.0-36.0) 10/09/24 14:05 RDW Std Deviation 40.1 fL (36.4-46.3) 10/09/24 14:05 RDW Coeff of Elpidio 13.2 % (11.5-14.5) 10/09/24 14:05 Plt Count 328 K/uL (130-400) 10/09/24 14:05 MPV 8.4 fL (9.4-12.4) L 10/09/24 14:05 Immature Gran % (Auto) 0.4 % 10/09/24 14:05 Neut % (Auto) 74.6 % 10/09/24 14:05 Lymph % (Auto) 13.3 % 10/09/24 14:05 [place] % (Auto) 10.5 % 10/09/24 14:05 Eos % (Auto) 0.9 % 10/09/24 14:05 Baso % (Auto) 0.3 % 10/09/24 14:05 Neut # (Auto) 10.17 K/uL (1.40-6.50) H 10/09/24 14:05 Lymph # (Auto) 1.82 K/uL (1.20-3.40) 10/09/24 14:05 [place] # (Auto) 1.43 K/uL (0.11-0.59) H 10/09/24 14:05 Eos # (Auto) 0.12 K/uL (0.00-0.50) 10/09/24 14:05 Baso # (Auto) 0.04 K/uL (0.00-0.20) 10/09/24 14:05 Immature Gran # (Auto) 0.06 K/uL (0.01-0.20) 10/09/24 14:05 PT 11.5 Seconds (9.0-12.0) 10/09/24 14:05 INR 1.1 (0.9-1.1) 10/09/24 14:05 Sodium 124 mmol/L (136-145) L 10/09/24 14:05 Potassium 3.9 mmol/L (3.5-5.1) 10/09/24 14:05 Chloride 92 mmol/L (98-107) L 10/09/24 14:05 Carbon Dioxide 24 mmol/L (21-32) 10/09/24 14:05 Anion Gap 8 (3-11) 10/09/24 14:05 BUN 12 mg/dl (6-23) 10/09/24 14:05 Creatinine 0.81 mg/dl (0.6-1.2) 10/09/24 14:05 Est Cr Clr Drug Dosing 43.6 ml/min 10/09/24 14:05 eGFR 73.80 10/09/24 14:05 BUN/Creatinine Ratio 14.8 (10-20) 10/09/24 14:05 Glucose 110 mg/dl (70-99(Fasting)) H 10/09/24 14:05 Calcium 9.5 mg/dl (8.6-10.3) 10/09/24 14:05 Total Bilirubin 0.6 mg/dl (0.2-1.0) 10/09/24 14:05 AST 32 U/L (13-39) 10/09/24 14:05 ALT 22 U/L (7-52) 10/09/24 14:05 Alkaline Phosphatase 68 U/L (34-104) 10/09/24 14:05 Troponin I High Sens 6.2 pg/ml (0-14) 10/09/24 14:05 Total Protein 7.7 gm/dl (6.0-8.3) 10/09/24 14:05 Albumin 4.2 gm/dl (3.4-5.0) 10/09/24 14:05 Globulin 3.5 gm/dl (2.5-4.0) 10/09/24 14:05 Albumin/Globulin Ratio 1.2 (0.9-2) 10/09/24 14:05 Lipase 55 U/L (11-82) 10/09/24 14:05 Urine Color Yellow 10/09/24 14:05 Urine Appearance Clear (Clear) 10/09/24 14:05 Urine pH 5.5 (4.5-7.5) 10/09/24 14:05 Ur Specific [place] 1.015 (1.000-1.030) 10/09/24 14:05 Urine Protein 1+ (Negative) H 10/09/24 14:05 Urine Glucose (UA) Negative (Negative) 10/09/24 14:05 Urine Ketones Trace (Negative) H 10/09/24 14:05 Urine Blood 1+ (Negative) H 10/09/24 14:05 Urine Nitrite Negative (Negative) 10/09/24 14:05 Urine Bilirubin Negative (Negative) 10/09/24 14:05 Urine Urobilinogen Negative (Negative) 10/09/24 14:05 Ur Leukocyte Esterase Negative (Negative) 10/09/24 14:05 Urine WBC (Auto) 0-5 /hpf (0-5) 10/09/24 14:05 Urine RBC (Auto) 0-2 /hpf (0-2) 10/09/24 14:05 U Hyaline Cast (Auto) 11-20 /lpf (0-2) H 10/09/24 14:05 U Epithel Cells (Auto) 3-5 /hpf (0-2) H 10/09/24 14:05 Urine Bacteria (Auto) None Seen (None Seen) 10/09/24 14:05 Hyaline Casts Present /lpf (None Presnt) A 10/09/24 14:05 Urine Comment 10/09/24 14:05 Stl C. cayetanensis PCR Not Detected (NotDetected) 10/09/24 14:05 Stool Rotavirus A PCR Not Detected (NotDetected) 10/09/24 14:05 Stl Adenov F 40/41 PCR Not Detected (NotDetected) 10/09/24 14:05 Stool Astrovirus (PCR) Not Detected (NotDetected) 10/09/24 14:05 Stool Campylobacter PCR Not Detected (NotDetected) 10/09/24 14:05 Stl C. diff Tox B Gene Negative Cdiff Gene (Neg) 10/09/24 14:05 Stl C. diff 027-NAP1-BI NEGATIVE 10/09/24 14:05 Stool Cryptosporidium PCR Not Detected (NotDetected) 10/09/24 14:05 Stl E.coli Shiga Tox PCR Not Detected (NotDetected) 10/09/24 14:05 Stl Enterotoxigenic E PCR Not Detected (NotDetected) 10/09/24 14:05 Stool EPEC (PCR) Not Detected (NotDetected) 10/09/24 14:05 Stool EAEC (PCR) Not Detected (NotDetected) 10/09/24 14:05 Stl E. histolytica PCR Not Detected (NotDetected) 10/09/24 14:05 Stool Giardia Lamblia PCR Not Detected (NotDetected) 10/09/24 14:05 Stool Salmonella PCR Not Detected (NotDetected) 10/09/24 14:05 Stool Sapovirus (PCR) Not Detected (NotDetected) 10/09/24 14:05 Stl P. shigelloides PCR Not Detected (NotDetected) 10/09/24 14:05 Stl Shigella/EIEC PCR Not Detected (NotDetected) 10/09/24 14:05 St Y.enterocolitica PCR Not Detected (NotDetected) 10/09/24 14:05 Stool Vibrio (PCR) Not Detected (NotDetected) 10/09/24 14:05 Stl Vibrio cholerae PCR Not Detected (NotDetected) 10/09/24 14:05 Stl Norovirus GI/GII PCR Not Detected (NotDetected) 10/09/24 14:05 Adenovirus (PCR) Not Detected (NotDetected) 10/09/24 15:03 B. pertussis DNA (PCR) Not Detected (NotDetected) 10/09/24 15:03 B.parapertussis DNA PCR Not Detected (NotDetected) 10/09/24 15:03 C. pneumoniae DNA (PCR) Not Detected (NotDetected) 10/09/24 15:03 Coronavirus OC43 (PCR) Not Detected (NotDetected) 10/09/24 15:03 Coronavirus HKU1 (PCR) Not Detected (NotDetected) 10/09/24 15:03 Coronavirus 229E (PCR) Not Detected (NotDetected) 10/09/24 15:03 SARS-CoV-2 (PCR) Not Detected (NotDetected) 10/09/24 15:03 Coronavirus NL63 (PCR) Not Detected (NotDetected) 10/09/24 15:03 Human Metapneumovir PCR Not Detected (NotDetected) 10/09/24 15:03 Influenza Type A (PCR) Not Detected (NotDetected) 10/09/24 15:03 Influenza Type B (PCR) Not Detected (NotDetected) 10/09/24 15:03 M. pneumoniae (PCR) Not Detected (NotDetected) 10/09/24 15:03 Parainfluenza 1 (PCR) Not Detected (NotDetected) 10/09/24 15:03 Parainfluenza 2 (PCR) Not Detected (NotDetected) 10/09/24 15:03 Parainfluenza 3 (PCR) Not Detected (NotDetected) 10/09/24 15:03 Parainfluenza 4 (PCR) Not Detected (NotDetected) 10/09/24 15:03 RSV (PCR) Not Detected (NotDetected) 10/09/24 15:03 Entero/Rhino (PCR) Not Detected (NotDetected) 10/09/24 15:03 Impressions Abdomen/Pelvis CT 10/09/24 13:[address] WITH IV CONTRAST CT DOSE: 416.74 mGy.cm HISTORY: mid abd pain, diarrhea TECHNIQUE: Multiaxial CT images of the abdomen and pelvis were performed following the IV administration of 95 cc of Optiray, A dose lowering technique was utilized adhering to the principles of ALARA. COMPARISON STUDY: None FINDINGS: ABDOMEN: There are a few tiny liver cysts. Otherwise the liver, gallbladder, spleen, pancreas, and adrenal glands are unremarkable. There is no hydronephrosis bilaterally. No renal calculi seen. There are mild atherosclerotic calcifications. No abdominal aortic aneurysm. Pelvis: Uterus is either absent or very diminutive. No adnexal mass seen. Urinary bladder is normal in distended. There is sigmoid diverticulosis. No acute diverticulitis. No bowel inflammation or obstruction. No free fluid or free air. No enlarged adenopathy. Osseous structures: There is lumbar degenerative disc disease. There are mild degenerative changes at the hips. IMPRESSION: No acute findings. ACT 112: Negative or not required by law. The above report was generated using voice recognition software. It may contain grammatical, syntax or spelling errors. Electronically signed by: Dharmesh Gaytan M.D. 10/09/2024 3:10 PM Chest X-Ray 10/09/24 14:59 XR chest 1V portable CLINICAL HISTORY: cough COMPARISON STUDY: None FINDINGS: Heart size and pulmonary vasculature are normal. There is a small area of faint reticular and patchy opacity medial left lung base. No lobar consolidation or pleural effusion. No pneumothorax. IMPRESSION: Possible early pneumonia medial left lung base. ACT 112: Negative or not required by law. Electronically signed by: Dharmesh Gaytan M.D. 10/09/2024 3:29 PM Supervising Physician Co-Signing Physician Notes Attending Addendum: Case reviewed with the advanced practitioner. I have personally performed a history and physical examination on the patient. I have reviewed the advanced practitioner's documentation on the date of service referenced in note, and I agree with, and take responsibility for the plan of care. please refer to her notes for full details patient seen and examined, records reviewed by myself as well on exam, patient seen resting in bed, comfortable, not in distress, very pleasant states she feels ok overall at present had 2 loose BMS today, no blood, abdominal cramping improving has subjective feeling of warmth at home has occasional dry cough no other symptoms VS noted and reviewed General- oriented x 3, not in distress, speaks in sentences with no effort or accessory muscle use Head- atraumatic Eyes- PERRL, EOMI, anicteric ENT- oropharynx clear, no tonsillar enlargement/exudates/erythema no cervical LAD Neck- supple, no JVD, no adenopathy, no thyromegaly; carotids +2/2, no bruits appreciated Lungs- clear to auscultation bilaterally, no rales/wheezes Heart- normal rate, regular rhythm; no murmur, no gallop, no rub appreciated Abdomen- normal bowel sounds, nondistended, soft, nontender, no masses or hepatosplenomegaly Extremities- no pretibial edema, no calf tenderness; peripheral pulses intact Neuro- alert, oriented x 3; CN 2-12 grossly intact; motor 5/5 bilaterally;sensation 100% on all extremities; no other gross focal neurologic deficits Skin- warm & dry all labs, imaging noted and reviewed ASSESSMENT AND PLAN> ACUTE GASTROENTERITIS Stool PCR, C Diff: negative patient is 79 yo, has recorded fever of 101.2 at PCP office today, was having 5 loose BMs/day at home, presenting with dehydration and hyponatremia given above risk factors, will start empiric Levaquin po daily gentle IV fluids clear liquids, advance as tolerated LEFT LOWER LOBE PNEUMONIA reports occasional dry cough seen on CXR respiratory panel negative Legionella pending on Levaquin PO as per above MILD ATHEROSCLEROTIC CALCIFICATIONS ON CT ABDOMEN on Simvastatin consider ASA 81mg daily once gastroenteritis resolves other diagnoses and plan of care as per advanced practitioner's notes I spent a total of 45 minutes coordinating, documenting, and providing care for this patient, excluding time spent in the performance of separately billed services or time spent by another provider/QHP. Branden Elder MD
[2024-10-09] MEDS: AZITHROMYCIN 500 MG/255 ML BAG IV ONE (17:17)
[2024-10-09] MEDS: CEFEPIME 1000MG 1,000 MG/10 ML SYR IV STA (17:17)
[2024-10-09 17:18] LABS: BUN Creatinine Ratio 13.2 (10-20); Calcium 8.9 mg/dl (8.6-10.3); Creatinine Clr Calc Pharmacy 46.4 ml/min; Magnesium 1.3 mg/dl (1.7-2.4); Potassium 3.8 mmol/L (3.5-5.1)
[2024-10-09] MEDS: levoFLOXacin 500 MG TAB PO STA (17:20)
[2024-10-09] MEDS: CEFEPIME 2000MG 2,000 MG/20 ML SYR IV STA (17:20)
[2024-10-09] MEDS: SODIUM CHLORIDE 0.9% 1,000 ML IV SCH (17:20)
[2024-10-09] MEDS: MAGNESIUM SULFATE / D5W 1 GM/100 ML BAG IV SCH (20:09)
[2024-10-09] MEDS: ACETAMINOPHEN 325 MG TAB PO PRN (20:12)
[2024-10-09] MEDS ORDERED: CARBOHYDRATES FOR HYPOGLYCEMIA PO PRN (20:35)
[2024-10-09] MEDS ORDERED: GLUCAGON FOR INJ 1 MG VIAL SQ PRN (20:35)
[2024-10-09] MEDS ORDERED: DEXTROSE 50% 50 ML SYRINGE IV PRN (20:35)
[2024-10-09] MEDS ORDERED: GLUCOSE 40% GEL 15 GM TUBE PO PRN (20:35)
[2024-10-09] MEDS ORDERED: GLUCOSE 10 TAB/TUBE PO PRN (20:35)
[2024-10-09 20:54] LABS: Urine Potassium 24.4 mmol/L
[2024-10-09 22:54] LABS: BUN Creatinine Ratio 13.8 (10-20); Calcium 8.6 mg/dl (8.6-10.3); Creatinine Clr Calc Pharmacy 44.1 ml/min
[2024-10-09] MEDS: INSULIN ASPART PER UNIT CHARGE SC SCH (23:31)
[2024-10-10 06:05] LABS: Basophils # (auto) 0.01 K/uL (0.00-0.20); Basophils % (auto) 0.1 %; Eosinophils # (auto) 0.09 K/uL (0.00-0.50); Eosinophils % (auto) 0.9 %; Hematocrit (blood only) 32.8 % (37.0-47.0); Hemoglobin 10.7 g/dl (12.0-16.0); Immature Granulocytes # (auto) 0.05 K/uL (0.01-0.20); Immature Granulocytes % (auto) 0.5 %; Lymphocytes # (auto) 1.03 K/uL (1.20-3.40); Lymphocytes % (auto) 10.2 %; Mean Corpuscular Hemoglobin 27.4 pg (25.0-34.0); Mean Corpuscular Hgb Conc 32.6 g/dL (32.0-36.0); Mean Corpuscular Volume 84.1 fL (80.0-100.0); Mean Platelet Volume 8.5 fL (9.4-12.4); Monocytes # (auto) 1.21 K/uL (0.11-0.59); Neutrophils # (auto) 7.73 K/uL (1.40-6.50); Neutrophils % (auto) 76.3 %; Platelet Count 327 K/uL (130-400); RDW Coefficient of Variation 13.3 % (11.5-14.5); RDW Standard Deviation 41.3 fL (36.4-46.3); White Blood Count 10.12 K/ul (4.8-10.8)
[2024-10-10 06:21] LABS: Albumin Globulin Ratio 1.2 (0.9-2); BUN Creatinine Ratio 13.3 (10-20); Bilirubin,Total 0.5 mg/dl (0.2-1.0); Calcium 8.4 mg/dl (8.6-10.3); Creatinine Clr Calc Pharmacy 47.1 ml/min; Globulin 3.1 gm/dl (2.5-4.0); Potassium 3.9 mmol/L (3.5-5.1); Total Protein 6.8 gm/dl (6.0-8.3)
[2024-10-10] MEDS: FERROUS SULFATE 325 MG TAB PO SCH (08:53)
[2024-10-10] MEDS: CHOLECALCIFEROL 25 MCG (1000 UNITS) TAB PO SCH (08:53)
[2024-10-10] MEDS: ENOXAPARIN INJ 40 MG/0.4 ML SYR SQ SCH (08:53)
[2024-10-10] MEDS ORDERED: levoFLOXacin 500 MG TAB PO SCH (11:00)
[2024-10-10 12:12] LABS: BUN Creatinine Ratio 12.7 (10-20); Calcium 8.2 mg/dl (8.6-10.3); Creatinine Clr Calc Pharmacy 49.8 ml/min; Potassium 3.7 mmol/L (3.5-5.1)
--- NOTE | 2024-10-10 16:47 | Hospitalist Progress Note ---
Date of Service October 10, 2024 Assessment & Plan (1) Acute hyponatremia: Plan: Acute Hyponatremia: -Likely hide secondary to dehydration w/ recent diarrhea. -Presented with sodium of 124, serum osmolality 259 with a low urine osmolality of 192 and random urine sodium of 61 -Received gentle IVF -sodium level has been up at 127 and then 131 and remains 131 IV fluid has been discontinued and she will be given regular diet -Denies any more nausea no vomiting no diarrhea -Stool has been negative for any infection and diarrhea is controlled Acute gastroenteritis: -Stool PCR negative, with fever -CT A/P unremarkable. - Serology was negative for mycoplasma and urine Legionella antigen is pending -Diarrhea is controlled Suspected CAP: -Viral Panel negative, levaquin will cover PNA - no hypoxia at this time, legionella pending -CTA is negative for any pneumonia -No signs and/or symptoms of infection -Mycoplasma titer has been negative and Legionella urine antigens pending -Will continue Levaquin for now and likely discontinue on discharge (2) DM2 (diabetes mellitus, type 2): Plan: Hx DM2: -Hold glipizide and metformin; monitor sugars; insulin as needed (3) HLD (hyperlipidemia): (4) Iron deficiency anemia: Plan: Full code DVT proph: lovenox Plan The patient is a 79 Admission and Anticipated Discharge Date Admission Date: October 09, 2024 Subjective 10/10/2024 The patient was seen and examined in telemetry unit She was admitted with nausea vomiting and diarrhea with fever of 1 day duration Noted to have acute hyponatremia Has been feeling much better and denies any more nausea no vomiting does not have any cough or shortness of breath No fever and/or chills Review of Systems Review of Systems: All systems reviewed and are unremarkable except as noted below Physical Exam Physical Exam: Lying in bed without any acute distress Constitutional: average body habitus and + thin; not ill appearing Eyes: PERRL, conjunctivae normal, anicteric sclerae ENMT: external ear and nose normal, oropharynx normal Neck: trachea midline, no thyromegaly Respiratory: no respiratory distress Auscultation: + crackles (Occasional bibasilar crackles) Cardiovascular: Rate/Rhythm: regular rate and regular rhythm; not tachycardic Heart Sounds: normal S1 and normal S2; no murmur Extremities: no edema Gastrointestinal (Abdomen): Inspection/Auscultation: normal bowel sounds; abdomen not distended Percussion/Palpation: abdomen soft; abdomen nontender Musculoskeletal: No acute arthritis involving any of the joint Neurologic: normal touch/pain/proprioception and moves all extremities; no focal motor deficits Lymphatic: no cervical or axillary lymphadenopathy Results & Data Results & Data Vital Signs (Past 12 Hours) Vital Signs Temp Pulse Pulse Resp BP Pulse Ox O2 Del Method 10/10/24 15:30 37.4 C 80 16 138/75 98 Room Air 10/10/24 11:24 36.7 C 70 15 130/76 97 Room Air 10/10/24 09:13 Room Air 10/10/24 08:11 36.5 C 64 16 117/65 98 Room Air 10/10/24 08:07 65 Laboratory Results Short CBC 10/10/24 Range/Units 05:28 WBC 10.12 (4.8-10.8) K/ul Hgb 10.7 L (12.0-16.0) g/dl Hct 32.8 L (37.0-47.0) % Plt Count 327 (130-400) K/uL [facility] 10/09/24 10/09/24 10/10/24 16:33 22:24 05:28 Sodium 127 L 127 L 131 L Potassium 3.8 4.0 3.9 Chloride 95 L 97 L 100 Carbon Dioxide 24 21 23 BUN 10 11 10 Creatinine 0.76 0.80 0.75 Glucose 97 113 H 100 H Calcium 8.9 8.6 8.4 L 10/10/24 10:24 Sodium 131 L Potassium 3.7 Chloride 100 Carbon Dioxide 24 BUN 9 Creatinine 0.71 Glucose 150 H Calcium 8.2 L Liver Function 10/10/24 Range/Units 05:28 Total Bilirubin 0.5 (0.2-1.0) mg/dl AST 26 (13-39) U/L ALT 19 (7-52) U/L Alkaline Phosphatase 62 (34-104) U/L Albumin 3.7 (3.4-5.0) gm/dl Medications Administered Current Inpatient Medications Acetaminophen (Acetaminophen 325 Mg Tab) 650 mg PO Q4H PRN PRN Reason: Pain or Fever Stop: 11/08/24 19:09 Last Admin: 10/10/24 04:38 Dose: 650 mg Dextrose (Dextrose 50% 50 Ml Syringe) 25 - 50 ml IV UD PRN; Protocol PRN Reason: Hypoglycemia Protocol Stop: 11/08/24 20:34 Enoxaparin Sodium (Enoxaparin Inj 40 Mg/0.4 Ml Syr) 40 mg SQ QAM SHAKEEL Stop: 11/09/24 08:59 Last Admin: 10/10/24 08:53 Dose: 40 mg Ferrous Sulfate (Ferrous Sulfate 325 Mg Tab) 325 mg PO DAILY SHAKEEL Stop: 11/09/24 08:59 Last Admin: 10/10/24 08:53 Dose: 325 mg Glucagon (Glucagon For Inj 1 Mg Vial) 1 mg SQ UD PRN; Protocol PRN Reason: Hypoglycemia Protocol Stop: 11/08/24 20:34 Glucose (Glucose 40% Gel 15 Gm Tube) 15 - 30 gm PO UD PRN; Protocol PRN Reason: Hypoglycemia Protocol Stop: 11/08/24 20:34 Glucose (Glucose 10 Tab/Tube) 4 - 8 tab PO UD PRN; Protocol PRN Reason: Hypoglycemia Protocol Stop: 11/08/24 20:34 Insulin Aspart (Insulin Aspart Per Unit Charge) 0 units SC ACHS SHAKEEL Stop: 11/08/24 20:59 Last Admin: 10/10/24 12:07 Dose: Not Given Levofloxacin (Levofloxacin 750 Mg Tab) 750 mg PO Q24H SHAKEEL Stop: 10/20/24 16:59 Miscellaneous (Carbohydrates For Hypoglycemia ) 15 - 30 gm PO UD PRN PRN Reason: Hypoglycemia Protocol Stop: 11/08/24 20:34 Vitamin D (Cholecalciferol 25 Mcg (1000 Units) Tab) 25 mcg PO DAILY SHAKEEL Stop: 11/09/24 08:59 Last Admin: 10/10/24 08:53 Dose: 25 mcg
[2024-10-10] MEDS: levoFLOXacin 750 MG TAB PO SCH (17:47)
[2024-10-10] MEDS ORDERED: levoFLOXacin 750 MG TAB PO SCH (18:00)
[2024-10-10] MEDS: MELATONIN 3 MG TAB PO PRN (23:38)
[2024-10-11 05:27] LABS: Basophils # (auto) 0.01 K/uL (0.00-0.20); Basophils % (auto) 0.1 %; Eosinophils # (auto) 0.32 K/uL (0.00-0.50); Eosinophils % (auto) 4.1 %; Hematocrit (blood only) 30.4 % (37.0-47.0); Immature Granulocytes # (auto) 0.05 K/uL (0.01-0.20); Immature Granulocytes % (auto) 0.6 %; Lymphocytes # (auto) 1.65 K/uL (1.20-3.40); Mean Corpuscular Hemoglobin 27.5 pg (25.0-34.0); Mean Corpuscular Hgb Conc 32.9 g/dL (32.0-36.0); Mean Corpuscular Volume 83.5 fL (80.0-100.0); Mean Platelet Volume 8.7 fL (9.4-12.4); Monocytes # (auto) 1.19 K/uL (0.11-0.59); Monocytes % (auto) 15.2 %; Neutrophils # (auto) 4.63 K/uL (1.40-6.50); Platelet Count 330 K/uL (130-400); RDW Coefficient of Variation 13.5 % (11.5-14.5); Red Blood Count 3.64 M/uL (4.20-5.40); White Blood Count 7.85 K/ul (4.8-10.8)
[2024-10-11 05:46] LABS: BUN Creatinine Ratio 9.1 (10-20); Calcium 8.5 mg/dl (8.6-10.3); Creatinine Clr Calc Pharmacy 45.9 ml/min; Potassium 3.9 mmol/L (3.5-5.1)
--- NOTE | 2024-10-11 06:17 | Electrocardiogram Report ---
Test Reason : Blood Pressure : */* mmHG Vent. Rate : 78 BPM Atrial Rate : 78 BPM P-R Int : 158 ms QRS Dur : 74 ms QT Int : 374 ms P-R-T Axes : 56 35 63 degrees QTcB Int : 426 ms Normal sinus rhythm Normal ECG When compared with ECG of 11-Jul-1997 07:51, No significant change Confirmed by Patrice Varma ([id number]) on 10/11/2024 6:17:07 AM Referred By: Florinda Maldonado Confirmed By: Patrice Varma
--- NOTE | 2024-10-11 06:17 | Electrocardiogram Report ---
Test Reason : Blood Pressure : */* mmHG Vent. Rate : 69 BPM Atrial Rate : 69 BPM P-R Int : 156 ms QRS Dur : 70 ms QT Int : 414 ms P-R-T Axes : 59 28 63 degrees QTcB Int : 443 ms Normal sinus rhythm Cannot rule out Septal infarct , age undetermined Abnormal ECG When compared with ECG of 09-Oct-2024 14:18, No significant change Confirmed by Patrice Varma ([id number]) on 10/11/2024 6:17:31 AM Referred By: Florinda Maldonado Confirmed By: Patrice Varma
[2024-10-11 07:28] VITALS: RESP 17
[2024-10-11] MEDS: SODIUM CHLORIDE 0.9% 500 ML IV SCH (09:19)
[2024-10-11 12:00] VITALS: BP 125/68; PULSE 63; TEMP 98.2; O2SAT 97
--- NOTE | 2024-10-11 12:52 | Hospitalist Progress Note ---
Date of Service October 11, 2024 Assessment & Plan (1) Acute hyponatremia: Plan: Acute Hyponatremia: -Likely hide secondary to dehydration w/ recent diarrhea. -Presented with sodium of 124, serum osmolality 259 with a low urine osmolality of 192 and random urine sodium of 61 -Received gentle IVF -sodium level has been up at 127 and then 131 and remains 131 IV fluid has been discontinued and she will be given regular diet -Denies any more nausea no vomiting no diarrhea -Stool has been negative for any infection and diarrhea is controlled Sodium level is 130 and she has been eating and drinking normally Has been receiving 250 mL of normal saline and will repeat PRP at 2 and if sodium level is infusing we will discharge the patient home this afternoon -Will check TSH and also random cortisol level Acute gastroenteritis: -Stool PCR negative, with fever -CT A/P unremarkable. - Serology was negative for mycoplasma and urine Legionella antigen is pending -Diarrhea is controlled No more diarrhea and stool test have been negative Suspected CAP:-Ruled out CAP -Viral Panel negative, levaquin will cover PNA - no hypoxia at this time, legionella pending -CTA is negative for any pneumonia -No signs and/or symptoms of infection -Mycoplasma titer has been negative and Legionella urine antigens pending -Will continue Levaquin for now and likely discontinue on discharge No evidence of respiratory symptoms and a cough and will discontinue antibiotic on discharge (2) DM2 (diabetes mellitus, type 2): Plan: Hx DM2: -Hold glipizide and metformin; monitor sugars; insulin as needed (3) HLD (hyperlipidemia): (4) Iron deficiency anemia: Plan: Full code DVT proph: lovenox Plan The patient is a 79 Admission and Anticipated Discharge Date Admission Date: October 09, 2024 Subjective 10/10/2024 The patient was seen and examined in telemetry unit She was admitted with nausea vomiting and diarrhea with fever of 1 day duration Noted to have acute hyponatremia Has been feeling much better and denies any more nausea no vomiting does not have any cough or shortness of breath No fever and/or chills 10/11/2024 The patient was seen and examined in telemetry unit in presence of the family members She has been feeling much better and denies any more diarrhea No cough and no shortness of breath no abdominal pain, nausea or vomiting Review of Systems Review of Systems: All systems reviewed and are unremarkable except as noted below Physical Exam Physical Exam: Lying in bed without any acute distress Constitutional: average body habitus and + thin; not ill appearing Eyes: PERRL, conjunctivae normal, anicteric sclerae ENMT: external ear and nose normal, oropharynx normal Neck: trachea midline, no thyromegaly Respiratory: no respiratory distress Auscultation: + crackles (Occasional bibasilar crackles) Cardiovascular: Rate/Rhythm: regular rate and regular rhythm; not tachycardic Heart Sounds: normal S1 and normal S2; no murmur Extremities: no edema Gastrointestinal (Abdomen): Inspection/Auscultation: normal bowel sounds; abdomen not distended Percussion/Palpation: abdomen soft; abdomen nontender Musculoskeletal: No acute arthritis involving any of the joint Neurologic: normal touch/pain/proprioception and moves all extremities; no focal motor deficits Psychiatric: A+Ox3, euthymic affect Lymphatic: no cervical or axillary lymphadenopathy Results & Data Results & Data Vital Signs (Past 12 Hours) Vital Signs Temp Pulse Pulse Resp BP Pulse Ox O2 Del Method 10/11/24 11:30 36.8 C 63 17 125/68 97 Room Air 10/11/24 09:54 Room Air 10/11/24 07:26 36.7 C 61 17 133/74 99 Room Air 10/11/24 07:06 55 L 10/11/24 03:47 36.3 C L 57 L 20 129/75 99 Room Air Laboratory Results Short CBC 10/11/24 Range/Units 04:59 WBC 7.85 (4.8-10.8) K/ul Hgb 10.0 L (12.0-16.0) g/dl Hct 30.4 L (37.0-47.0) % Plt Count 330 (130-400) K/uL [facility] 10/11/24 04:59 Sodium 130 L Potassium 3.9 Chloride 99 Carbon Dioxide 25 BUN 7 Creatinine 0.77 Glucose 110 H Calcium 8.5 L Medications Administered Current Inpatient Medications Acetaminophen (Acetaminophen 325 Mg Tab) 650 mg PO Q4H PRN PRN Reason: Pain or Fever Stop: 11/08/24 19:09 Last Admin: 10/10/24 19:48 Dose: 650 mg Dextrose (Dextrose 50% 50 Ml Syringe) 25 - 50 ml IV UD PRN; Protocol PRN Reason: Hypoglycemia Protocol Stop: 11/08/24 20:34 Enoxaparin Sodium (Enoxaparin Inj 40 Mg/0.4 Ml Syr) 40 mg SQ QAM SHAKEEL Stop: 11/09/24 08:59 Last Admin: 10/11/24 09:20 Dose: 40 mg Ferrous Sulfate (Ferrous Sulfate 325 Mg Tab) 325 mg PO DAILY SHAKEEL Stop: 11/09/24 08:59 Last Admin: 10/11/24 09:20 Dose: 325 mg Glucagon (Glucagon For Inj 1 Mg Vial) 1 mg SQ UD PRN; Protocol PRN Reason: Hypoglycemia Protocol Stop: 11/08/24 20:34 Glucose (Glucose 40% Gel 15 Gm Tube) 15 - 30 gm PO UD PRN; Protocol PRN Reason: Hypoglycemia Protocol Stop: 11/08/24 20:34 Glucose (Glucose 10 Tab/Tube) 4 - 8 tab PO UD PRN; Protocol PRN Reason: Hypoglycemia Protocol Stop: 11/08/24 20:34 Insulin Aspart (Insulin Aspart Per Unit Charge) 0 units SC ACHS SHAKEEL Stop: 11/08/24 20:59 Last Admin: 10/11/24 12:41 Dose: Not Given Levofloxacin (Levofloxacin 750 Mg Tab) 750 mg PO Q24H SHAKEEL Stop: 10/20/24 16:59 Last Admin: 10/10/24 17:47 Dose: 750 mg Melatonin (Melatonin 3 Mg Tab) 3 mg PO HS PRN PRN Reason: Sleep Stop: 11/09/24 23:14 Last Admin: 10/10/24 23:38 Dose: 3 mg Miscellaneous (Carbohydrates For Hypoglycemia ) 15 - 30 gm PO UD PRN PRN Reason: Hypoglycemia Protocol Stop: 11/08/24 20:34 Vitamin D (Cholecalciferol 25 Mcg (1000 Units) Tab) 25 mcg PO DAILY SHAKEEL Stop: 11/09/24 08:59 Last Admin: 10/11/24 09:20 Dose: 25 mcg
[2024-10-11 15:00] LABS: BUN Creatinine Ratio 9.7 (10-20); Calcium 8.6 mg/dl (8.6-10.3); Creatinine Clr Calc Pharmacy 48.9 ml/min; Potassium 3.9 mmol/L (3.5-5.1)
--- NOTE | 2024-10-11 17:18 | Discharge Summary ---
Date of Service October 11, 2024 Admission HPI Per Admitting Provider The patient is a 79-year-old female with a past medical history of DM2, HLD, vitamin B12 deficiency, iron deficiency anemia, who presents to the ED on 10/09/2024 with complaints of diarrhea over the past 4 days. Patient had fever in PCPs office earlier today, Tmax 101.2. She reports the diarrhea started wednesday and has not improved. Denied eating anything differently or eating out recently. Also reported abdominal cramping after every meal followed by a bowel movement. Reports have bms 5 x a day. Denies any nausea or vomiting. Reports having 2 bowel movements today. Reports feeling like the diarrhea is slowing tiburcio n. Reported some intermittent coughing along with a dust allergy. Denies chest pain or back pain. Denies dizziness, headache, shortness of breath. Reports feeling some weakness. Reports traveling to [place] last month. Denies sick contacts. On arrival to the ED, labs remarkable for NA 124, chloride 92, glucose 110, WBC 13, hemoglobin 11.2 Chest x-ray shows possible early pneumonia, medial left lung base Abdomen/pelvis CT negative for any acute findings Respiratory viral panel negative, stool PCR negative Patient received IV ab and IVF in the ER. The patient will be admitted for further management of hyponatremia Admission Exam Per Admitting Provider Constitutional: WD/WN, vitals as above Eyes: PERRL, conjunctivae normal, anicteric sclerae ENMT: external ear and nose normal, oropharynx normal Neck: trachea midline, no thyromegaly Respiratory: normal respiratory effort, lungs clear to auscultation Cardiovascular: RRR, no murmur, no edema Gastrointestinal (Abdomen): normal bowel sounds, soft, nontender, no hepatosplenomegaly (reports abdominal cramping, intermittent) Musculoskeletal: no cyanosis or clubbing, extremities motor strength 5/5 Skin: no rashes, warm and dry Neurologic: PERRL, EOMI, accommodation nl, no face palsy, no dysarthria Psychiatric: A+Ox3, euthymic affect Lymphatic: no cervical or axillary lymphadenopathy Principal Diagnosis Hyponatremia, Acute gastroenteritis Discharge Exam Lying in bed without any acute distress Constitutional average body habitus and + thin; not ill appearing Eyes PERRL, conjunctivae normal, anicteric sclerae ENMT external ear and nose normal, oropharynx normal Neck trachea midline, no thyromegaly Respiratory no respiratory distress Auscultation: + crackles (Occasional bibasilar crackles) Cardiovascular Rate/Rhythm: regular rate and regular rhythm; not tachycardic Heart Sounds: normal S1 and normal S2; no murmur Extremities: no edema Gastrointestinal (Abdomen) Inspection/Auscultation: normal bowel sounds; abdomen not distended Percussion/Palpation: abdomen soft; abdomen nontender Neurologic normal touch/pain/proprioception and moves all extremities; no focal motor deficits Psychiatric A+Ox3, euthymic affect Lymphatic no cervical or axillary lymphadenopathy Discharge Data Allergies Allergy/AdvReac Type Severity Reaction Status Date / Time beet Allergy Severe Gastrointestinal Unverified 10/09/24 16:15 Upset latex Allergy Unknown RASH Verified 10/09/24 16:15 codeine AdvReac Unknown coughing Verified 10/09/24 16:15 Consultations 10/09/24 16:14 ED Decision to Admit Stat Ordered Studies 10/09/24 13:58 CT abd pelvis IV con only Stat Hospital Course (1) Acute hyponatremia: Acute Hyponatremia: -Likely hide secondary to dehydration w/ recent diarrhea. -Presented with sodium of 124, serum osmolality 259 with a low urine osmolality of 192 and random urine sodium of 61 -Received gentle IVF -sodium level has been up at 127 and then 131 and remains 131 IV fluid has been discontinued and she will be given regular diet -Denies any more nausea no vomiting no diarrhea -Stool has been negative for any infection and diarrhea is controlled Sodium level is 130 and she has been eating and drinking normally Has been receiving 250 mL of normal saline and will repeat PRP at 2 and if sodium level is infusing we will discharge the patient home this afternoon -Will check TSH and also random cortisol level Acute gastroenteritis: -Stool PCR negative, with fever -CT A/P unremarkable. - Serology was negative for mycoplasma and urine Legionella antigen is pending -Diarrhea is controlled No more diarrhea and stool test have been negative Suspected CAP:-Ruled out CAP -Viral Panel negative, levaquin will cover PNA - no hypoxia at this time, legionella pending -CTA is negative for any pneumonia -No signs and/or symptoms of infection -Mycoplasma titer has been negative and Legionella urine antigens pending -Will continue Levaquin for now and likely discontinue on discharge No evidence of respiratory symptoms and a cough and will discontinue antibiotic on discharge (2) DM2 (diabetes mellitus, type 2): Hx DM2: -Hold glipizide and metformin; monitor sugars; insulin as needed (3) HLD (hyperlipidemia): (4) Iron deficiency anemia: Full code DVT proph: lovenox Plan The patient is a 79 Total Time Total Time Spent Total Time Spent (In Minutes): 35 minutes Discharge Plan Discharge Items Patient Disposition: Home - Self-Care Reason For Visit: HYPONATREMIA, DIARRHEA Discharge Diagnosis: Hyponatremia, Acute gastroenteritis Condition on Discharge: Good Activity: Resume your previous activity Non-emergency contact: Primary Care Provider Call non-emergency contact if: you have any medication questions and your symptoms worsen Follow-up/Referrals: Nathaniel Ramachandran MD [Primary Care Provider] - (Date & Time 10/18/2024 10:00 AM Provider: Naz Wilson MD General Internal Medicine [facility] ) Diet: Regular and Vegan (no animal product) Addtl Attending Provider Instructions: Please take precautions to avoid falls Try to drink more fluid No change in your medications Please keep appointment with your healthcare provider Pending Studies at Discharge: No Stand-Alone Forms: My [facility] [employer], Smoking Cessation Medications and DC Order Prescriptions: Continued Januvia 100 mg tablet 100 mg PO DAILY simvastatin 10 mg tablet 10 mg PO DAILY multivitamin [Daily Multi-Vitamin] Tablet 1 tab PO DAILY cyanocobalamin (vitamin B-12) 1,000 mcg tablet 1,000 mcg PO DAILY glipizide 2.5 mg tablet extended release 24hr 2.5 mg PO DAILY ferrous sulfate 325 mg (65 mg iron) Tablet,Delayed Release (Dr/Ec) 325 mg PO DAILY metformin 500 mg tablet extended release 24 hr 1,000 mg PO BID calcium carbonate [Calcium 600] 600 mg calcium (1,500 mg) Tablet 600 mg PO DAILY cholecalciferol (vitamin D3) [Vitamin D3] 25 mcg (1,000 unit) Tablet 25 mcg PO DAILY Discharge Orders: Discharge Order (Routine); Ordered 10/11/24 Ordered By: Janina Phillips Admission Data Admit Date/Time: 10/09/24 16:22 Attending Provider: Janina Phillips Admit Provider: Branden Elder Primary Care Provider: Nathaniel Ramachandran Other Providers: Branden Elder Other Interventions: Discharge Summary Assessment (RN) Last Done: 10/11/24 15:18
--- NOTE | 2024-10-12 04:28 | Electrocardiogram Report ---
Test Reason : Blood Pressure : */* mmHG Vent. Rate : 61 BPM Atrial Rate : 61 BPM P-R Int : 158 ms QRS Dur : 72 ms QT Int : 444 ms P-R-T Axes : 60 17 40 degrees QTcB Int : 446 ms Normal sinus rhythm Septal infarct (cited on or before 10-Oct-2024) Abnormal ECG When compared with ECG of 10-Oct-2024 06:15, No significant change was found Confirmed by Patrice Varma ([id number]) on 10/12/2024 4:27:32 AM Referred By: Florinda Maldonado Confirmed By: Patrice Varma
== END 2024-10-11 16:16 | disposition home or self-care (01) | DRG 641 ==
LOC: ED 13:28 → 4W 16:22 → INTOOBSV 16:22 → SUATTDRO 16:22 → 4W 17:59